=== PATIENT | male | born 1970 | race Caucasian/White ===

== ENCOUNTER 2022-03-05 14:18 | Emergency (ER) | payer OTHER, SELFPAY ==
[2022-03-05 14:21] VITALS: BP 173/93; PULSE 83; RESP 18; TEMP 36.8; O2SAT 100
--- NOTE | 2022-03-05 14:23 | DI.RAD.S_ITS ---
PROCEDURE: XR HAND LT MIN 3V INDICATIONS: crush injury. TECHNIQUE: 3 views of the hand(s) acquired. COMPARISON: None. FINDINGS: Bones: Small osseous fragment noted in the distal pad of the 2nd finger as well as small calcific density medial to the 5th DIP. No evidence of displaced cortical fracture. Soft tissues: No suspicious soft tissue calcifications. IMPRESSION: Calcific trace debris in the dorsal pad of the 2nd finger reflective foreign body or small avulsion fracture. Rounded 2 mm calcific density medial to the 5th DIP may reflect sesamoid or prior injury Approved by: Munir Hudson M.D. on 03/05/2022 at 14:17
--- NOTE | 2022-03-05 15:33 | ED.UPPEXIN ---
HPI - Extremity Injury (Upper) <OG Kelly - Last Filed: 03/05/22 15:55> General Chief Complaint: Extremity Injury, Upper Stated Complaint: Equpiment fell on left hand Time Seen by Provider: 03/05/22 15:32 Source: patient Mode of arrival: Ambulatory History of Present Illness HPI narrative: This is a 51-year-old male who presents to the emergency department after a crush injury to his left hand at work today. This is an L and I claim, patient states that he had immediate pain, denies any sensation deficit at this time or range of motion abnormalities. He has a large bruise to the top of his left hand, a scratch is present superficially with dried blood, no wrist pain, forearm pain, or range of motion deficits. Patient states his last tetanus was within the last 10 years, he does not want a tetanus vaccination today. He had Motrin prior to arrival. Related Data Allergies Allergy/AdvReac Type Severity Reaction Status Date / Time No Known Drug Allergies Allergy Verified 03/05/22 14:23 Review of Systems <OG Kelly - Last Filed: 03/05/22 15:55> Review of Systems Narrative: General: denies fever, chills Head/Neck: denies headache, neck pain Eyes: denies visual changes, eye pain Cardio: denies chest pain, palpitations Respiratory: denies shortness of breath, cough GI: denies abdominal pain, nausea, vomiting, or diarrhea : denies dysuria, hematuria MSK: denies joint pain, muscle weakness Skin: denies rash, itching, endorses left hand pain with scratch an bruise Neuro: denies numbness, tingling Exam <OG Kelly - Last Filed: 03/05/22 15:55> Narrative Exam Narrative: Independently reviewed vitals signs and nursing notes. General: cooperative, comfortable, in no acute distress, well developed and well groomed Head: atraumatic, symmetrical facial expressions Neck: supple, atraumatic, without lymphadenopathy. Eyes: pupils equal round and reactive, EOMI, conjunctiva normal Nose: nares patent, no rhinorrhea MSK: moves all extremities, ambulatory w/steady gait, neurovascularly intact, no weakness Skin: brisk capillary refill, no rash, no erythema, abrasion with superficial scratch to the dorsum of his left hand with a moderate contusion. No bony tenderness to his left hand, patient has mild tenderness at his snuffbox but this is the center of his wound. Patient denies any wrist tenderness, has full range of motion sensation is fingers. No other injuries. No bleeding. Neuro: normal speech and cognition, A&O x3, normal tone Psych: mental status is grossly normal, congruent mood, normal affect, pleasant and cooperative Initial Vital Signs Initial Vital Signs: Vital Signs Temperature 98.3 F 03/05/22 14:21 Pulse Rate 83 03/05/22 14:21 Respiratory Rate 18 03/05/22 14:21 Blood Pressure 173/93 H 03/05/22 14:21 Pulse Oximetry 100 03/05/22 14:21 <Monse Johnson DO - Last Filed: 03/06/22 08:05> Initial Vital Signs Initial Vital Signs: Vital Signs Temperature 98.3 F 03/05/22 14:21 Pulse Rate 83 03/05/22 14:21 Respiratory Rate 18 03/05/22 14:21 Blood Pressure 173/93 H 03/05/22 14:21 Pulse Oximetry 100 03/05/22 14:21 Course <OG Kelly - Last Filed: 03/05/22 15:55> Orders Ordered: ED Orders 03/05/22 14:23 XR hand LT min 3V Stat Vital Signs Vital signs: Vital Signs - 8 hr 03/05/22 14:21 Temperature 98.3 F Pulse Rate 83 Respiratory Rate 18 Blood Pressure 173/93 H Pulse Oximetry 100 <Monse Johnson DO - Last Filed: 03/06/22 08:05> Orders Ordered: ED Orders 03/05/22 14:23 XR hand LT min 3V Stat Vital Signs Vital signs: Vital Signs - 8 hr 03/05/22 14:21 Temperature 98.3 F Pulse Rate 83 Respiratory Rate 18 Blood Pressure 173/93 H Pulse Oximetry 100 MDM - Extremity Injury (Upper) <OG Kelly - Last Filed: 03/05/22 15:55> Imaging Data Extremity x-ray #1: Radiologist's Impression: PROCEDURE:? XR HAND LT MIN 3V ? INDICATIONS:? crush injury. ? TECHNIQUE:? 3 views of the hand(s) acquired.? ? COMPARISON:? None. ? FINDINGS:? ? Bones:? Small osseous fragment noted in the distal pad of the 2nd finger as well as small calcific density medial to the 5th DIP.? No evidence of displaced cortical fracture. ? Soft tissues:? No suspicious soft tissue calcifications.? ? ? IMPRESSION:? ? Calcific trace debris in the dorsal pad of the 2nd finger reflective foreign body or small avulsion fracture. ? Rounded 2 mm calcific density medial to the 5th DIP may reflect sesamoid or prior injury ? ? ? Approved by: Munir Hudson M.D. on 03/05/2022 at 14:17? MDM Narrative Medical decision making narrative: 51-year-old male presents to the emergency department with a contusion of his left hand heavy on his left hand at work today. [id number]. X-ray does not show any new fracture of his metacarpals where his injury is. Patient has minor tenderness at snuffbox, and has an abrasion over this. This is close to the central of his injury. Patient states that his tetanus is up-to-date he declines wanting update to his tetanus vaccination today. Patient has a moderate contusion hand without any tenderness to the metacarpals to palpation, no tenderness to his left wrist with palpation, distal radius or ulna full range of motion in tact to his fingers, without sensation deficits. Neurovascularly intact. Fitted patient in a Velcro wrist splint, wrapped hand with Bandar wrap for compression, encourage ice, Tylenol, ibuprofen as needed for his symptoms. He states he can go back to work without concern. Patient understands to follow-up with his primary care provider if he has any weakness, ongoing pain, or any concerns. He does not have any bee stings today. Discharge Plan Departure Patient Disposition: Home Clinical Impression: Work related injury Contusion Qualifiers: Encounter type: initial encounter Contusion area: hand Laterality: left Qualified Code(s): S60.222A - Contusion of left hand, initial encounter Instructions: Contusion, DI for Hand Injury Activity Restrictions/Additional Instructions: *You have been diagnosed with crush injury of your left hand, with a large contusion. Please ensure that your tetanus is updated every 10 years, I will let you follow-up with your primary care provider about when that would be for you. Thank you for coming in for evaluation, there is no fracture in your left hand. Please wear this splint for as long as it is helpful, alternatively you may use an Bandar bandage wrap to help with some of that swelling, ice it frequently for the next 3-4 days, it should start to get better. You take ibuprofen every 6-8 hours with food and water. Please stay hydrated while taking medicines coming take Tylenol additionally, you can apply topical Voltaren gel which is an anti-inflammatory as well that may help with some of the swelling. Hopefully this gets better quick. I wish you luck. *What to do: *Please continue to take your regular medications as directed. [ ] New medication prescriptions sent to your pharmacy: [ ] [ ] New medication written as a paper prescription [ x] No new medications given *Please follow up with your primary care provider in 2-3 days, call for an appointment. Let them know you were seen in the Emergency Department and that we asked that you be seen for follow-up. We will electronically transmit a record of today's note if your PCP is in our system *If you do not have a primary care provider please contact [phone] to establish care with one of [facility] primary care providers. *Return to Emergency Department if you should have any new, worsening or concerning symptoms, such as [fever greater than 101F, chills, worsening pain, persistent vomiting or other bothersome symptoms] Referrals: Benjamín Granados MD [Primary Care Provider] - <Monse Johnson DO - Last Filed: 03/06/22 08:05> [facility] Daniature Attestation: I was immediately available in the department for consultation. Documentation has been reviewed. I agree with assessment and plan.
== END 2022-03-05 15:53 | disposition home or self-care (01) ==
PROVIDERS: Emergency Provider Nurse Practitioner Critical Care Medicine; PCP Family Medicine
DX: S60.222A Contusion of left hand, initial encounter (principal); W23.0XXA Caught, crushed, jammed, or pinched between moving objects, initial encounter; Y99.0 Civilian activity done for income or pay
CPT/HCPCS: 73130; 99283

== ENCOUNTER 2022-12-08 13:01 | Emergency (ER) | payer OTHER, MEDICAID, SELFPAY ==
[2022-12-08 13:07] VITALS: BP 170/92; PULSE 95; RESP 18; TEMP 36.7; O2SAT 96; BMI 38.2
--- NOTE | 2022-12-08 13:26 | DI.RAD.S_ITS ---
P in ROCEDURE: XR SHOULDER RT MIN 2V INDICATIONS: Fall TECHNIQUE: 3 views of the shoulder were acquired. COMPARISON: None. FINDINGS: Bones: Subtle lucency near the base of the right greater tuberosity likely representing overlapping trabeculation. No definite cortical disruption. Remainder of the visualized osseous structures appear intact. Alignment appears anatomic. Moderate degenerative changes of the acromioclavicular joint with undersurface irregularity. Chronic appearing soft tissue calcification projecting over the superomedial margin of the humeral head likely sequela of calcific tendinopathy. No suspicious bony lesions. Visualized ribs appear intact. Soft tissues: No suspicious soft tissue calcifications. IMPRESSION: 1. Subtle lucency near the base of the right greater tuberosity likely representing overlapping trabeculation. If there is persistent high clinical suspicion for occult fracture, consider immobilization and repeat imaging in 10-14 days. 2. 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 3. Chronic appearing soft tissue calcifications projecting over the superomedial margin the humeral head which likely represent sequela of calcific tendinopathy. Dictated by: J Luis Zabala M.D. on 12/08/2022 at 15:56 Approved by: J Luis Zabala M.D. on 12/08/2022 at 16:03
--- NOTE | 2022-12-08 13:27 | PC.NURSE ---
When triaging, patient expressed he has concerns about losing housing, not getting enough food, and losing transportation. Patient verbally expressed he does not want to speak with [facility]ER.
--- NOTE | 2022-12-08 13:43 | ED.UPPEXIN ---
HPI - Extremity Injury (Upper) <Brenda Moya PA-C - Last Filed: 12/08/22 20:51> General Chief Complaint: Extremity Injury, Upper Stated Complaint: fell on RT arm and in pain/ 3am Time Seen by Provider: 12/08/22 13:10 Source: patient Mode of arrival: Ambulatory History of Present Illness HPI narrative: 52-year-old male with past medical history hypertension, gout presents to the ED status post a fall sustained at 3:00 a.m. this morning. Patient states he has been drinking a lot over this weekend, that he had a headache and was walking from 1 building to the other on his property to get Tylenol, was walking down a inclined hill, when he suffered a mechanical fall and fell hurting his right shoulder. Patient denies head strike, loss of consciousness. Patient states that he was not intoxicated at the time of the fall, although he had been drinking a lot this weekend. Patient states that following the fall, he did not take any Tylenol or ibuprofen, however he has continued to drink beer. Patient denies numbness, tingling, weakness. Patient is holding his arm close to the torso, complains of pain with shoulder abduction. Related Data Allergies Allergy/AdvReac Type Severity Reaction Status Date / Time No Known Drug Allergies Allergy Verified 12/08/22 13:49 Review of Systems <Brenda Moya PA-C - Last Filed: 12/08/22 20:51> Review of Systems ROS Unobtainable: All systems reviewed & are unremarkable except as noted in HPI and below Constitutional Constitutional: Denies chills, Denies fatigue, Denies fever(s), Denies frequent falls, Denies lethargy and Denies weakness Eyes Eyes: Denies change in vision, Denies eye discharge, Denies irritation and Denies loss of vision ENT Ears, Nose, Mouth, and Throat: Denies change in voice, Denies dizziness, Denies neck pain, Denies sore throat and Denies throat swelling Cardiovascular Cardiovascular: Denies chest pain, Denies irregular heart rhythm, Denies lightheadedness, Denies palpitations, Denies dyspnea, Denies dyspnea on exertion and Denies orthopnea Respiratory Respiratory: Denies cough, Denies dyspnea, Denies dyspnea on exertion and Denies wheezing Gastrointestinal Gastrointestinal: Denies abdominal pain, Denies change in bowel habits, Denies diarrhea, Denies nausea and Denies vomiting Genitourinary Genitourinary: Denies hematuria, Denies flank pain, Denies urinary incontinence and Denies urinary urgency Musculoskeletal Musculoskeletal: Denies back pain, Denies muscle weakness, Denies neck pain, Denies numbness and Denies tingling Comments: Right shoulder pain Integumentary/Breasts Skin/Breast: Denies pruritus, Denies erythema, Denies rash and Denies wounds Neurologic Neurologic: Denies behavioral changes, Denies confusion, Denies dizziness, Denies frequent falls, Denies loss of vision, Denies numbness, Denies tingling and Denies weakness Psychiatric Psychiatric: Denies anxiety, Denies behavioral changes, Denies confusion, Denies depression, Denies homicidal ideation and Denies suicidal ideation Endocrine Endocrine: Denies fatigue, Denies flushing and Denies palpitations Hematologic/Lymphatic Hematologic/Lymphatic: Denies easy bruising Allergic/Immunologic Allergic/Immunologic: Denies urticaria, Denies throat swelling and Denies wheezing Patient History <Brenda Moya PA-C - Last Filed: 12/08/22 20:51> Social History Smoking Status: Current every day smoker Smoking Status: Current every day smoker tobacco type: cigarettes alcohol intake frequency: 3 or more drinks per day Alcohol type: beer Substance Use Type: marijuana Exam <Brenda Moya PA-C - Last Filed: 12/08/22 20:51> Narrative Exam Narrative: Const General:?cooperative, healthy appearing and comfortable [facility] Head:?normal to inspection Ears:?hearing grossly normal bilaterally Nose:?external nose normal Face and sinus:?normal facial exam and sinuses nontender Mouth:?oral mucosae normal Throat:?posterior oropharynx normal Eyes General:?appearance normal, both eyes and all related structures Neck Neck:?normal visual inspection and no lymphadenopathy noted Resp Effort & Inspection:?normal respiratory effort Auscultation:?clear to auscultation bilaterally Cardio Rate:?regular rate Rhythm:?regular rhythm Musculoskeletal There is no midline tenderness to palpation. There is no paraspinal tenderness to palpation. No bruising, deformities, TTP of right shoulder on exam. Range of motion limited by pain. Strength and sensation is intact. Patient appears neurovascularly intact. Neuro General:?patient alert, patient awake and patient oriented x3 Initial Vital Signs Initial Vital Signs: Vital Signs Temperature 98.1 F 12/08/22 13:07 Pulse Rate 95 H 12/08/22 13:07 Respiratory Rate 18 12/08/22 13:07 Blood Pressure 170/92 H 12/08/22 13:07 Pulse Oximetry 96 12/08/22 13:07 Oxygen Delivery Method 12/08/22 13:07 <Roby Skelton DO - Last Filed: 12/09/22 08:48> Initial Vital Signs Initial Vital Signs: Vital Signs Temperature 98.1 F 12/08/22 13:07 Pulse Rate 95 H 12/08/22 13:07 Respiratory Rate 18 12/08/22 13:07 Blood Pressure 170/92 H 12/08/22 13:07 Pulse Oximetry 96 12/08/22 13:07 Oxygen Delivery Method 12/08/22 13:07 Course <Brenda Moya PA-C - Last Filed: 12/08/22 20:51> Orders Ordered: Discontinued Medications Ketorolac Tromethamine (Ketorolac 30 Mg/Ml Vial) 30 mg IM NOW ONE Stop: 12/08/22 13:32 Last Admin: 12/08/22 13:49 Dose: 30 mg Documented By: KENIA Vital Signs Vital signs: Vital Signs - 8 hr 12/08/22 13:07 Temperature 98.1 F Pulse Rate 95 H Respiratory Rate 18 Blood Pressure 170/92 H Pulse Oximetry 96 Oxygen Delivery Method Room Air <Roby Skelton DO - Last Filed: 12/09/22 08:48> Orders Ordered: Discontinued Medications Ketorolac Tromethamine (Ketorolac 30 Mg/Ml Vial) 30 mg IM NOW ONE Stop: 12/08/22 13:32 Last Admin: 12/08/22 13:49 Dose: 30 mg Documented By: KENIA Vital Signs Vital signs: Vital Signs - 8 hr 12/08/22 13:07 Temperature 98.1 F Pulse Rate 95 H Respiratory Rate 18 Blood Pressure 170/92 H Pulse Oximetry 96 Oxygen Delivery Method Room Air MDM - Extremity Injury (Upper) <Brenda Moya PA-C - Last Filed: 12/08/22 20:51> MDM Narrative Medical decision making narrative: 52-year-old male with past medical history hypertension, gout presents to the ED status post a fall sustained at 3:00 a.m. this morning. Concern for fracture/dislocation versus musculoskeletal sprain/strain. Will obtain x-ray. Will treat pain with Toradol. Will reassess. X-ray shows a subtle lucency near the base of the right greater tuberosity likely representing overlapping trabeculation. Recommend follow-up with PCP and repeat imaging in 10-14 days. Patient was fitted with a sling to immobilize the shoulder until follow-up with PCP. Recommend Tylenol, ibuprofen for symptom relief. ED return precautions were discussed with patient. Patient verbalized understanding. Medical records reviewed:??yes ? Disposition: see below, along with detailed discharge instructions that have been reviewed with patient as well as indications for ED re-evaluation and additional outpatient follow up Discharge Plan Departure Patient Disposition: Home Clinical Impression: Acute shoulder pain Instructions: DI for Shoulder Sprain Activity Restrictions/Additional Instructions: You were evaluated in the ED today for a shoulder injury sustained earlier this morning. The x-ray did not show an obvious fracture, we will immobilize your shoulder with a sling for comfort and healing. We recommend you follow-up with your primary care doctor and get x-rays done in 10-14 days to rule out any occult fractures. You may take ibuprofen, Tylenol for pain. Return to the ED if you experience any numbness, tingling, weakness. Referrals: Miscellaneous,Doctor MD [Primary Care Provider] - Stand Alone Forms: Patient Portal/API <Roby Skelton DO - Last Filed: 12/09/22 08:48> Cosign ED Attending Neli Attestation: I was immediately available in the department for consultation. This documentation has been reviewed and I agree with assessment and plan. Supervised by Roby Skelton DO
[2022-12-08] MEDS: KETOROLAC 30 MG/ML VIAL IM (13:49)
== END 2022-12-08 16:11 | disposition home or self-care (01) ==
PROVIDERS: Emergency Provider Student in an Organized Health Care Education/Training Program
DX: M25.511 Pain in right shoulder (principal); W18.30XA Fall on same level, unspecified, initial encounter
CPT/HCPCS: 73030; 96372; 99283; 99284; J1885

== ENCOUNTER → 2023-08-07 09:33 | Outpatient (CLI) | payer OTHER, MEDICAID, SELFPAY ==
--- NOTE | 2023-08-07 09:35 | DI.RAD.S_ITS ---
PROCEDURE: XR SHOULDER RT MIN 2V INDICATIONS: Subacute pain, possible impingement vs rotator cuff tear TECHNIQUE: 3 views of the shoulder were acquired. COMPARISON: [facility], CR, XR SHOULDER RT MIN 2V, 12/08/2022, 15:36. FINDINGS: Bones: No fractures or dislocations. No suspicious bony lesions. Visualized ribs appear intact. Calcific tendinopathy. Mild acromioclavicular joint space narrowing with osteophytic lipping of the clavicle. Soft tissues: No suspicious soft tissue calcifications. IMPRESSION: No displaced fracture or significant glenohumeral osteoarthritis. Mild acromioclavicular osteoarthritis. Suspected calcific tendinopathy of a rotator cuff tendon. Dictated by: Franc Sanchez M.D. on 08/07/2023 at 10:51 Approved by: Franc Sanchez M.D. on 08/07/2023 at 10:52
[2023-08-07 10:39] LABS: Add Manual Diff / Slide Review NO; Basophils Absolute Auto 0 /uL (0-100); Basophils Percent Auto 0.7 % (0-2); Eosinophils Absolute Auto 400 /uL (0-450); Eosinophils Percent Auto 5.5 % (2-4); Hematocrit 37.7 % (41-53); Hemoglobin 13.1 g/dL (13.5-17.5); Lymphocytes Absolute Auto 2200 /uL (1100-4500); Lymphocytes Percent Auto 34.3 % (25-40); Mean Corpuscular HGB Conc 34.8 % (30-36); Mean Corpuscular Hemoglobin 29.7 PG (26-34); Mean Corpuscular Volume 85.5 fL (80-100); Monocytes Absolute Auto 600 /uL (0-900); Monocytes Percent Auto 8.6 % (3-14); Neutrophils Absolute Auto 3300 /uL (1500-7000); Neutrophils Percent Auto 50.9 % (50-75); Platelet Count 314 X10^3/uL (150-400); Red Blood Cell Count 4.41 X10^6/uL (4.5-5.9); Red Cell Distribution Width 14.5 % (11.6-14.8); White Blood Cell Count 6.4 X10^3/uL (4.5-11.0)
[2023-08-07 11:01] LABS: Alanine Aminotransferase 26 IU/L (<50); Albumin Globulin Ratio 1.4 (1.0-2.8); Alkaline Phosphatase 62 U/L (38-126); Aspartate Aminotransferase 26 IU/L (17-59); Bilirubin Total 0.5 mg/dL (0.2-1.3); Blood Urea Nitrogen 10 mg/dL (9-20); Calcium 9.7 mg/dL (8.4-10.2); Carbon Dioxide 24 mmol/L (22-32); Chloride 104 mmol/L (98-107); Cholesterol 205 mg/dL (140-199); Estimated Glomerular Filt Rate > 60 mL/min (>60); Globulin 2.9 g/dL (1.7-4.1); Glucose 100 mg/dL (70-100); HDL Cholesterol 35 mg/dL (40-60); HEMOLYSIS < 15 (0-50); LDL Cholesterol Calculated 141 mg/dL (<100); Potassium 4.1 mmol/L (3.4-5.1); Sodium 137 mmol/L (137-145); Total Protein 6.9 g/dL (6.3-8.2); Triglycerides 146 mg/dL (35-150)
[2023-08-07 11:48] LABS: Hep C Virus Ab w/Reflex Quant NEGATIVE s/c (NEGATIVE)
== END ==
PROVIDERS: PCP Family Medicine; Referring Provider Family Medicine; Visit Provider Family Medicine
DX: M19.011 Primary osteoarthritis, right shoulder (principal); M25.511 Pain in right shoulder; B35.1 Tinea unguium; I10 Essential (primary) hypertension; Z00.00 Encounter for general adult medical examination without abnormal findings; M10.9 Gout, unspecified
CPT/HCPCS: 36415; 73030; 80053; 80061; 83036; 85025; 86803

== ENCOUNTER → 2023-09-05 09:37 | Outpatient (CLI) | payer OTHER, MEDICAID, SELFPAY ==
--- NOTE | 2023-09-05 09:38 | DI.MRI.S_ITS ---
PROCEDURE: MR SHOULDER RT WO CON INDICATIONS: RIGHT SHOULDER PAIN TECHNIQUE: Noncontrast oblique coronal T2 fast spin echo with fat saturation, oblique sagittal T1 spin echo and T2 fast spin echo with fat saturation, axial T1 spin echo and T2 fast spin echo with fat saturation through the shoulder. COMPARISON: [facility], CR, XR SHOULDER RT MIN 2V, 08/07/2023, 9:46. FINDINGS: Image quality: Excellent. Rotator cuff: There is thickening and heterogeneity of the distal supraspinatus tendon with focal partial intrasubstance tearing at the distal insertion. Moderate infraspinatus tendinosis. The teres minor tendon is intact. There is moderate tendinosis of the distal subscapularis tendon. The rotator cuff musculature is normal in bulk. Bones and bursae: Mild edema is seen at the anterior portion of the greater tuberosity the with cortical irregularity the but no acute fracture line, suspicious for a nearly healed nondisplaced fracture of the greater tuberosity. Mild partial-thickness cartilage irregularity is seen in the glenohumeral joint. There are moderate degenerative changes of the acromioclavicular joint subchondral cystic changes and marginal osteophyte formation. There is a small amount of fluid in the subacromial/subdeltoid bursa. No significant glenohumeral effusion is seen. Capsule and soft tissues: No displaced labral tear is seen. The proximal biceps long head tendon demonstrates mild tendinosis. There is partial effacement of the normal fat signal in the rotator interval. The anterior band of the inferior glenohumeral ligament and the middle glenohumeral ligament appear thickened. IMPRESSION: 1. Mild osseous edema and adjacent cortical irregularity at the greater tuberosity is suspicious for a nearly healed nondisplaced fracture. 2. Diffuse moderate rotator cuff tendinosis involving the supraspinatus, infraspinatus, and subscapularis tendons. There is focal low-grade partial intrasubstance tearing of the supraspinatus tendon at the distal insertion. 3. Mild tendinosis of the proximal biceps long head tendon. 4. Moderate acromioclavicular joint osteoarthrosis. 5. Small subacromial/subdeltoid bursal effusion or mild bursitis. 6. Partial effacement of the rotator interval fat and mild thickening of the middle and inferior glenohumeral ligaments are nonspecific, but can be seen in the setting of the clinical syndrome of adhesive capsulitis. Approved by: Stiven Strong M.D. on 09/07/2023 at 10:15
== END ==
PROVIDERS: PCP Family Medicine; Referring Provider Family Medicine; Visit Provider Family Medicine
DX: M25.511 Pain in right shoulder (principal); G89.29 Other chronic pain; M75.111 Incomplete rotator cuff tear or rupture of right shoulder, not specified as traumatic; M19.011 Primary osteoarthritis, right shoulder; M25.411 Effusion, right shoulder
CPT/HCPCS: 73221

== ENCOUNTER → 2024-05-20 14:32 | Outpatient (CLI) | payer OTHER, MEDICAID, SELFPAY ==
--- NOTE | 2024-05-20 14:34 | DI.RAD.S_ITS ---
PROCEDURE: XR CERVICAL SPINE 2V OR 3V INDICATIONS: Neck pain, intermittent numbness on Left side of face TECHNIQUE: 3 view(s) of the cervical spine were acquired. COMPARISON: None. FINDINGS: Bones: No fractures or dislocations to the T1 level. The lateral masses of C1 appear intact on the odontoid view. No suspicious bony lesions. Cervical straightening is present. Minimal scattered disc space narrowing. Minimal early changes of uncovertebral hypertrophy. Soft tissues: No prevertebral soft tissue swelling. IMPRESSION: Minimal early degenerative change. Dictated by: Deneen Rodriguez M.D. on 05/20/2024 at 17:27 Approved by: Deneen Rodriguez M.D. on 05/20/2024 at 17:27
== END ==
PROVIDERS: PCP Family Medicine; Referring Provider Family Medicine; Visit Provider Family Medicine
DX: M54.2 Cervicalgia (principal); R20.0 Anesthesia of skin; R20.2 Paresthesia of skin
CPT/HCPCS: 72040

== ENCOUNTER 2024-06-12 18:15 | Emergency (ER) | payer OTHER, MEDICAID, SELFPAY ==
[2024-06-12 18:19] VITALS: BP 172/95; PULSE 97; RESP 18; TEMP 36.7; O2SAT 97; BMI 43.5
--- NOTE | 2024-06-13 01:52 | ED.BACK ---
HPI - Back Pain/Injury General Chief Complaint: Back Pain/Injury Stated Complaint: Back Pain Source: patient History of Present Illness HPI Narrative: Patient left without seeing provider Related Data Previous Rx's Medication Instructions Recorded terbinafine HCl 250 mg tablet 250 mg PO DAILY #90 tabs 08/12/23 allopurinol 100 mg tablet 400 mg (4 x 100 mg) PO DAILY 90 08/20/23 days #360 tabs melatonin 3 mg capsule 6 mg (2 x 3 mg) PO BEDTIME PRN 09/01/23 sleep #60 caps ramelteon 8 mg tablet 8 mg PO BEDTIME PRN sleep #30 tabs 10/07/23 indomethacin 50 mg capsule 50 mg PO 3XD #20 caps 12/17/23 losartan 100 mg tablet 100 mg PO DAILY #90 tabs 12/17/23 hydroxyzine HCl 50 mg tablet 50 mg PO BEDTIME #60 tabs 02/10/24 chlorthalidone 25 mg tablet 25 mg PO DAILY #30 tabs 02/13/24 methocarbamol 750 mg tablet 750 mg PO BEDTIME PRN Pain, muscle 04/15/24 spasm #20 tabs methylprednisolone 4 mg tablets in See Rx Instructions PO PER PKG DIR 04/15/24 a dose pack (Medrol (Benito)) #21 ea bupropion HCl 300 mg 24 hr tablet, 300 mg PO QAM #90 tabs 05/18/24 extended release Allergies Allergy/AdvReac Type Severity Reaction Status Date / Time No Known Drug Allergies Allergy Verified 05/27/24 13:20 Patient History Family History (Updated 05/27/24 @ 13:30 by Radha Campuzano MA) Father Heart attack Social History Smoking Status: Current every day smoker Smoking Status: Current every day smoker tobacco type: cigarettes alcohol intake frequency: 3 or more drinks per day Alcohol type: beer Substance Use Type: marijuana Exam Initial Vital Signs Initial Vital Signs: Vital Signs Temperature 98.1 F 06/12/24 18:19 Pulse Rate 97 H 06/12/24 18:19 Respiratory Rate 18 06/12/24 18:19 Blood Pressure 172/95 H 06/12/24 18:19 Pulse Oximetry 97 06/12/24 18:19 Oxygen Delivery Method Room Air 06/12/24 18:19 Course Vital Signs Vital signs: Vital Signs - 8 hr 06/12/24 18:19 Temperature 98.1 F Pulse Rate 97 H Respiratory Rate 18 Blood Pressure 172/95 H Pulse Oximetry 97 Oxygen Delivery Method Room Air Discharge Plan Departure Patient Disposition: Left Without Being Seen Clinical Impression: Patient left before evaluation by physician Prescriptions: No Action hydroxyzine HCl 50 mg tablet 50 mg PO BEDTIME Qty: 60 1RF methylprednisolone [Medrol ([place]ito)] 4 mg tablets,dose pack See Rx Instructions PO PER PKG DIR Qty: 21 0RF Rx Instructions: PO PER PKG DIR for 6 days methocarbamol 750 mg tablet 750 mg PO BEDTIME PRN (Reason: Pain, muscle spasm) Qty: 20 0RF melatonin 3 mg capsule 6 mg PO BEDTIME PRN (Reason: sleep) Qty: 60 2RF Hold Instructions: Duplicate medical therapy chlorthalidone 25 mg tablet 25 mg PO DAILY Qty: 30 2RF terbinafine HCl 250 mg tablet 250 mg PO DAILY Qty: 90 1RF allopurinol 100 mg tablet 400 mg PO DAILY 90 Days Qty: 360 2RF ramelteon 8 mg tablet 8 mg PO BEDTIME PRN (Reason: sleep) Qty: 30 0RF losartan 100 mg tablet 100 mg PO DAILY Qty: 90 3RF indomethacin 50 mg capsule 50 mg PO 3XD Qty: 20 0RF bupropion HCl 300 mg tablet extended release 24 hr 300 mg PO QAM Qty: 90 2RF
== END 2024-06-12 19:06 | disposition left against medical advice (07) ==
PROVIDERS: Emergency Provider Emergency Medicine; PCP Family Medicine
CPT/HCPCS: 99281

== ENCOUNTER → 2024-06-17 11:47 | Outpatient (CLI) | payer OTHER, MEDICAID, SELFPAY ==
--- NOTE | 2024-06-17 11:49 | DI.MRI.S_ITS ---
PROCEDURE: MR HEAD/BRAIN WO/W CON INDICATIONS: L side neck numbness, L posterior neck pain TECHNIQUE: Noncontrast axial T1 spin echo, axial T2 fast spin echo, sagittal and axial FLAIR, coronal T2 fast spin echo, axial gradient echo, axial diffusion and ADC through the brain. After the administration of contrast, axial and coronal and sagittal 3D VIBE or T1 spin echo with fat saturation through the brain. COMPARISON: None. FINDINGS: Image quality: Diagnostic, with note made of motion artifact. CSF Spaces: Basal cisterns are patent. No extra-axial fluid collections. Ventricles are normal in size and shape. Brain: No midline shift. No intracranial bleeds or masses. No abnormal intracranial enhancement. The brainstem appears normal. Diffusion-weighted images demonstrate no acute infarct. No chronic ischemic insults. Normal intravascular flow voids are present. Skull and face: Calvarial marrow is normal in signal. Orbits appear normal. Sinuses: [id number] mucosal thickening can be seen within the inferior maxillary sinuses. Milder mucosal thickening can be seen elsewhere within the paranasal sinuses. There is moderate right mastoid air cell fluid present. IMPRESSION: No imaging explanation is found for this patient's presenting symptoms. No masses or abnormal enhancement can be seen. No findings of acute or subacute infarction can be seen. Additional findings: Paranasal sinus disease and right mastoid air cell fluid Dictated by: Sergo Mccartney M.D. on 06/17/2024 at 12:07 Approved by: Sergo Mccartney M.D. on 06/17/2024 at 12:09
== END ==
PROVIDERS: PCP Family Medicine; Referring Provider Family Medicine; Visit Provider Family Medicine
DX: J32.8 Other chronic sinusitis (principal); M54.2 Cervicalgia; R20.0 Anesthesia of skin; G44.86 Cervicogenic headache; R20.2 Paresthesia of skin
CPT/HCPCS: 70553; A9579